=== PATIENT | female | born 1935 | race Caucasian/White ===

== ENCOUNTER 2023-07-31 09:16 | Outpatient (CLI) | payer MEDICARE, SELFPAY ==
--- NOTE | ~2023-07-31 | XR_ITS ---
XR thoracolumbar DATE: 07/31/2023 09:42 INDICATION: Wedge compression fractures of T11 and T12 TECHNIQUE: Standing AP and standing flexion and extension lateral views of the lower thoracic and lum bar spine COMPARISON: None FINDINGS: There is diffuse osteopenia. There is moderate dextroscoliosis of the thoracic spine and rotatory moderate levoscoliosis of the maday mbar spine. There is moderate to moderately severe degenerative disc disease of the lumbar spine, sparing L5-S1. There is associated mild retrolisthesis at L3-4. There is moderately prominent chronic appearing anterior wedge compression fracture deformities of T1 2 and L1 with up to approximately 40% loss of height anteriorly at T12 At least 25% anterior loss of height at L1. The sacroiliac joints are intact. There is extensive calcification of the abdominal aorta and iliac arteries, without evidence of abdom inal aortic aneurysm. IMPRESSION: Likely chronic compression fracture deformities of T12 and L1 Thoracic and lumbar scoliosis Diffuse osteopenia Multilevel lumbar degenerative disc disease with associated mild retrolisthesis at L3-4 Reviewed, dictated and finalized at location B. [employer]
== END 2023-07-31 09:17 | disposition home or self-care (01) ==
PROVIDERS: PCP Pediatrics; Visit Provider Physician Assistant
DX: M47.816 Spondylosis without myelopathy or radiculopathy, lumbar region (principal); S22.080A Wedge compression fracture of T11-T12 vertebra, initial encounter for closed fracture; X58.XXXA Exposure to other specified factors, initial encounter; M85.88 Other specified disorders of bone density and structure, other site; M51.36 Other intervertebral disc degeneration, lumbar region
CPT/HCPCS: 72080

== ENCOUNTER 2023-08-31 09:49 | Outpatient (CLI) | payer MEDICARE, SELFPAY ==
--- NOTE | ~2023-08-31 | XR_ITS ---
XR thoracolumbar DATE: 08/31/2023 10:09 INDICATION: Back pain. History of fracture. TECHNIQUE: AP and lateral views of the lower thoracic spine and lumbar spine COMPARISON: 07/31/2023 thoracolumbar spine FINDINGS: Diffuse osteopenia. There is dextroscoliosis of the thoracic spine and rotatory levoscoliosis of the lumbar spine. Again noted are prominent anterior wedge compression fracture deformities of T12 and L1, stable in ap pearance since 07/31/2023. Multilevel moderate to moderately severe degenerative disc disease of the lumbar spine with associate d mild retrolisthesis at L1-2, L2-3 and L3-4. No anterolisthesis. The sacroiliac joints are intact. There is extensive calcification of the abdominal aorta, without aneurysm. IMPRESSION: No significant change since 07/31/2023 Reviewed, dictated and finalized at location B. [employer]
== END 2023-08-31 09:50 | disposition home or self-care (01) ==
PROVIDERS: PCP Pediatrics; Visit Provider Physician Assistant
DX: M47.816 Spondylosis without myelopathy or radiculopathy, lumbar region (principal); M41.55 Other secondary scoliosis, thoracolumbar region; S22.080D Wedge compression fracture of T11-T12 vertebra, subsequent encounter for fracture with routine healing; X58.XXXD Exposure to other specified factors, subsequent encounter
CPT/HCPCS: 72080